=== PATIENT | male | born 1935 | race Caucasian/White ===

== ENCOUNTER 2017-03-17 13:44 | Emergency (ER) | payer MEDICARE, OTHER ==
[~2017-03-17 13:44] MED LIST: ASA5GR PO; ASAB PO; ASABAYER PO; ATV.5 PO; COMBIGAN0.2 MG/0.5 OP; COMBIGAN0.2 MG/0.5 OPH; CRESTOR5 MG PO; EYE DROP OP; FLONASE NAS; HALF81 PO; ISORDIL10 PO; ISORDTAB5 PO; ISOSORBIDE PO; LOP25 PO; LOP50 PO; LUMIGAN2.5 ML OPH; METOPROLOL PO; NASAL SPRAY NAS; NITROQUICK0.4 MG SL; NITROSTAT0.4 MG SL; NORV10 PO; NORV5 PO; OPTHALMIC OPH; PLAVIX PO; STOOL SOFTENER PO; TOPXL25 PO; XALAT OPH; ZOCOR10 PO; ZOCOR5 MG PO; ZYRTEC ALLGY10 MG PO
[2017-03-17 14:41] LABS: BASOPHILS 0.5 %; BASOPHILS ABSOLUTE 0.05 10/3/uL (0.0-0.16); EOSINOPHILS 7.8 %; EOSINOPHILS ABSOLUTE 0.83 10/3/uL (0.0-0.53); ER CBC TAT 0 Hrs 01 Mins; HEMOGLOBIN 12.9 g/dL (13.6-17.8); IMMATURE GRANULOCYTES 0.3 %; IMMATURE GRANULOCYTES ABSOLUTE 0.03 10/3/uL (0.0-0.11); LYMPHOCYTES 13.8 %; LYMPHOCYTES ABSOLUTE 1.48 10/3/uL (0.67-4.30); MEAN CORPUS HGB CONC 34.7 g/dL (32.0-36.0); MEAN CORPUSCULAR HEMOGLOB 30.6 pg (26.0-34.0); MEAN CORPUSCULAR VOLUME 88.4 fL (80-100); MEAN PLATELET VOLUME 10.4 fL (9.2-13.0); MONOCYTES 13.7 %; MONOCYTES ABSOLUTE 1.47 10/3/uL (0.21-1.20); NEUTROPHILS 63.9 %; NEUTROPHILS ABSOLUTE 6.84 10/3/uL (2.02-8.40); PLATELET COUNT 234 10/3/uL (150-400); RBC DISTRIBUTION WIDTH 13.5 % (12.0-16.0); RED CELL COUNT 4.21 10/6/uL (4.7-6.1); WHITE BLOOD CELLS 10.7 10/3/uL (4.5-10.5)
[2017-03-17 14:42] LABS: HEMATOCRIT 37.2 % (40.0-51.0); MANUAL DIFF NO %
[2017-03-17 14:50] LABS: INTERNATIONAL NORMAL RATI 1.1 UNITS (-); PARTIAL THROMBO TIME 28.9 SEC (22.5-37.2); PROTIME (NOT ORD) 14.5 SEC (12.0-14.5)
[2017-03-17 14:59] LABS: BUN (BLOOD UREA NITROGEN) 12 MG/DL (6-23); CALCIUM, SERUM 8.5 MG/DL (8.5-10.4); CHLORIDE, SERUM 105 MMOL/L (96-112); CO2 (CARBON DIOXIDE) 24 MMOL/L (24-34); CREATININE 0.76 MG/DL (0.70-1.30); GFR AFRICAN AMERICAN 98 ML/MIN (>=60); GFR NON AFRICAN AMERICAN 84 ML/MIN (>=60); GLUCOSE, SERUM 96 MG/DL (60-99); SODIUM, SERUM 137 MMOL/L (135-148)
[2017-03-17 15:02] LABS: POTASSIUM, SERUM 4.5 MMOL/L (3.5-5.3)
[2017-03-17 15:03] LABS: CHEST PAIN PROFILE TAT 0 Hrs 23 Mins; TROPONIN I 0.09 NG/ML (<0.05)
== END 2017-03-17 17:46 | disposition home or self-care (01) ==
LOC: ER 13:44
PROVIDERS: Emergency Medicine
DX: R07.9 Chest pain, unspecified (principal); I25.2 Old myocardial infarction; Z95.1 Presence of aortocoronary bypass graft; Z79.82 Long term (current) use of aspirin; Z79.899 Other long term (current) drug therapy
CPT/HCPCS: 71010; 80048; 83735; 84484; 85025; 85610; 85730; 93005; 99285